=== PATIENT | female | born 1985 | race Caucasian/White ===

== ENCOUNTER 2016-04-28 18:24 | Emergency (ER) | payer MEDICAID ==
[~2016-04-28] VITALS: Ht 149.9 cm; Wt 58.9 kg
[~2016-04-28 18:24] MED LIST: ACET325T33 PO; ALBU8.5H5 IH; AZIT250T94 PO; CLON-379 PO; CYCL100C3 PO; DOCU-144 PO; MECL25TA2 PO; MYCO500T3 PO; POLY17PO6 PO
[2016-04-28 18:48] VITALS: Ht 149.9 cm; Wt 58.9 kg
[2016-04-28] MEDS ORDERED: ONDANSETRON 4 MG INJ IV STA (20:44)
[2016-04-28] MEDS ORDERED: SOD CHLORIDE 0.9% 1,000 ML IV ONE (21:00)
[2016-04-28] MEDS ORDERED: morphine 10 MG INJ IM ONE (21:00)
[2016-04-28 22:20] LABS: ADD SCAN DIFF NO
[2016-04-28 22:25] LABS: BASOPHILS % 0.2 % (0.0-2.0); EOSINOPHILS # 0.1 10^3/ul (0.0-0.5); EOSINOPHILS % 1.2 % (0.0-7.0); HEMATOCRIT 38.4 % (37.0-47.0); HEMOGLOBIN 12.7 g/dl (12.0-16.0); LYMPHOCYTES # 2.3 10^3/ul (0.8-2.9); MEAN CORPUSCULAR HEMOGLOBIN 31.5 pg (29.0-33.0); MEAN CORPUSCULAR HGB CONC 33.1 g/dl (32.0-37.0); MEAN CORPUSCULAR VOLUME 95.3 fl (82.0-101.0); MEAN PLATELET VOLUME 10.8 fl (7.4-10.4); MONOCYTE # 0.8 10^3/ul (0.3-0.9); MONOCYTES % 9.5 % (0.0-11.0); NEUTROPHIL # 4.8 10^3/ul (1.6-7.5); NEUTROPHILS % 59.6 % (39.0-77.0); PLATELET COUNT 321 10^3/UL (140-415); RED BLOOD COUNT 4.03 10^6/ul (4.20-5.40); RED CELL DISTRIBUTION WIDTH 12.7 % (11.5-14.5)
[2016-04-28 22:41] LABS: POTASSIUM 4.3 mmol/L (3.5-5.1)
[2016-04-28 22:43] LABS: ALBUMIN/GLOBULIN RATIO 1.25; BILIRUBIN,INDIRECT 0.3 mg/dl (0-1.1); BILIRUBIN,TOTAL 0.3 mg/dl (0.2-1.3); CREATININE 0.71 mg/dl (0.44-1.00); TOTAL PROTEIN 7.2 g/dl (6.1-8.1)
[2016-04-28 22:44] LABS: CALCIUM 9.3 mg/dl (8.4-10.2)
--- NOTE | 2016-04-28 22:46 | RADRPT ---
PROCEDURE: CT ABDOMEN/PELVIS WITHOUT CONTRAST CLINICAL INDICATION: 30-year-old female with abdominal pain and distension. The patient has a his tory of renal transplant. TECHNIQUE: The study was performed utilizing a GE Tractivepeed VCT 64-slice CT scanner. Direct axia l sections were obtained through the abdomen and pelvis without the use of intravenous contrast mate rial. Sagittal and coronal reformations were obtained. Automated exposure control and iterative nieves nstruction techniques were utilized for this examination. [facility]D/vol = 7.0 mGy; Total Exam DLP = 330.6 mGy-cm. COMPARISON: CT abdomen/pelvis April 05, 2015. FINDINGS: There is minimal left basilar subsegmental atelectasis. There is no evidence for significant pleura l effusion. The liver has a normal size and contour without focal areas of abnormal density. No int rahepatic nor extrahepatic biliary ductal dilatation is seen. The gallbladder demonstrates no wall t hickening nor pericholecystic fluid. No biliary stones are evident. The pancreas is without areas of abnormal attenuation. The spleen is identified and has a normal size without abnormal density. The adrenal glands are unremarkable. The [facility] kidneys are markedly atrophic and not clearly visualize d. There is a transplanted right pelvic kidney with mild prominence of the collecting system but wi thout herb hydronephrosis. Note that this is not significantly different in appearance compared to the patient's prior CT scan from April 2015. The urinary bladder contains urine. There is mild f luid within the proximal small bowel with distal decompression without definite significant transition point. There is mild fluid throughout the colon. The appendix is visualized and measuri ng up to 5 mm but without surrounding inflammatory changes or free fluid. The uterus is unremarkabl e. The aortoiliac vessels are without aneurysmal dilatation. The osseous structures are intact. IMPRESSION: 1. Transplanted right pelvic kidney with mild prominence of the collecting system without significa nt change compared to the patient's prior study from April 05, 2015. 2. Mild fluid-filled proximal small bowel with fluid throughout the colon without definite gross mariam wel obstruction. This may represent an enteritis. Clinical correlation is necessary. .Daquan Gan MD, Date Time Electronically viewed and signed by .Daquan Gan MD, MD on 04/28/2016 22:46 .M/
[2016-04-29] MEDS ORDERED: POLY17PO6 PO (00:55)
[2016-04-29] MEDS ORDERED: LACT10SO5 PO (00:58)
[2016-04-29 02:06] VITALS: BP 143/80; PULSE 78; RESP 20
--- NOTE | 2016-05-31 15:13 | ERD ---
ER Documentation Chief Complaint Date/Time DATE: 05/31/16 TIME: 14:53 Chief Complaint states been constipated x 1 week HPI This pleasant 31-year-old female presents to emergency department today complaining of constipation 5 days, right upper quadrant tenderness, patient reports that she has been nauseated and vomited 3, today. Patient reports pain is 5/10 on pain scale. Patient denies any fever, chills, or dysuria. Denies diarrhea. ROS All systems reviewed and are negative except as per history of present illness. Medications Home Meds Active Scripts Lactulose* (Lactulose*) 10 Gm/15 Ml Solution, 10 GM PO DAILY for 7 Days, ML Prov:LOUISA,MINOO 04/29/16 Polyethylene Glycol* (Miralax*) 17 Gm Powd.pack, 17 GM PO DAILY, #7 Prov:LOUISA,MINOO 04/29/16 Acetaminophen* (Tylenol*) 325 Mg Tablet, 1 TAB PO Q6 Y for PAIN AND OR ELEVATED TEMP, #20 TAB Prov:YANETH ELLIS PA-C 07/25/15 Polyethylene Glycol* (Miralax*) 17 Gm Powd.pack, 17 GM PO DAILY Y for CONSTIPATION, #7 Prov:ELIZABETH PUCKETT PA-C 04/05/15 Docusate Sodium* (Colace*) 100 Mg Capsule, 100 MG PO TID, #30 CAP Prov:ELIZABETH PUCKETT PA-C 04/05/15 Clonidine Hcl* (Clonidine Hcl*) 0.1 Mg Tab, 0.1 MG PO Q4H Y for high blood pressure, #20 TAB Take one (1) tablet PO PRN for systolic BP >180mmHG. Do not take more then 3 tabs daily. Prov:DAVE AYOUB 01/13/15 Meclizine Hcl* (Antivert*) 25 Mg Tablet, 25 MG PO Q6H Y for dizziness, #20 TAB Prov:DAVE AYOUB 01/13/15 Azithromycin* (Zithromax*) 250 Mg Tablet, 250 MG PO DAILY for 4 Days, TAB Prov:DAVE AYOUB 01/13/15 Albuterol Sulfate* (Albuterol Sulfate* HFA) 8.5 Gm Hfa.aer.ad, 2 PUFF IH Q6, #1 EA Prov:DAVE AYOUB 01/13/15 Reported Medications Cyclosporine* (Cyclosporine* Modified) 100 Mg Capsule, 100 MG PO BID, CAP 01/13/15 Mycophenolate Mofetil* (Mycophenolate Mofetil*) 500 Mg Tablet, 500 MG PO BID, TAB 01/13/15 Allergies Allergies: Coded Allergies: No Known Allergies (Verified Allergy, Mild, 04/28/16) PMhx/Soc History of Surgery: Yes (Kidney Transplant 2000) Anesthesia Reaction: No Hx Neurological Disorder: No Hx Respiratory Disorders: No Hx Cardiac Disorders: Yes (HTN) Hx Psychiatric Problems: No Hx Miscellaneous Medical Probl: No Hx Alcohol Use: No Hx Substance Use: No Hx Tobacco Use: No Smoking Status: Never smoker Physical Exam Vitals Vitals stable, nursing notes reviewed Physical Exam Const: No acute distress Head: Atraumatic Eyes: Normal Conjunctiva, EOMI, PERRLA ENT: Normal External Ears, Nose and Mouth. Mucous membranes moist Neck: Full range of motion..~ No meningismus. Resp: Clear to auscultation bilaterally no rales wheezes or rhonchi Cardio: Regular rate and rhythm, no murmurs Abd: Abdomen symmetrical, soft, right upper quadrant tenderness, positive Stahl sign, no McBurney's point tenderness, no CVA tenderness Skin: No petechiae or rashes Back: No midline or flank tenderness Ext: No cyanosis, or edema Neur: Awake and alert Psych: Normal Mood and Affect Results 24 hrs Laboratory Tests Test 04/28/16 21:44 White Blood Count 8.010^3/ul Red Blood Count 4.0310^6/ul Hemoglobin 12.7g/dl Hematocrit 38.4% Mean Corpuscular Volume 95.3fl Mean Corpuscular Hemoglobin 31.5pg Mean Corpuscular Hemoglobin Concent 33.1g/dl Red Cell Distribution Width 12.7% Platelet Count 01014^3/UL Mean Platelet Volume 10.8fl Neutrophils % 59.6% Lymphocytes % 29.0% Monocytes % 9.5% Eosinophils % 1.2% Basophils % 0.2% Nucleated Red Blood Cells % 0.0/100WBC Neutrophils # 4.810^3/ul Lymphocytes # 2.310^3/ul Monocytes # 0.810^3/ul Eosinophils # 0.110^3/ul Basophils # 0.010^3/ul Nucleated Red Blood Cells # 0.010^3/ul Activated Partial Thromboplast Time 27.5Sec Sodium Level 142mmol/L Potassium Level 4.3mmol/L Chloride Level 104mmol/L Carbon Dioxide Level 31mmol/L Anion Gap 11 Blood Urea Nitrogen 10mg/dl Creatinine 0.71mg/dl Glucose Level 87mg/dl Calcium Level 9.3mg/dl Total Bilirubin 0.3mg/dl Direct Bilirubin 0.00mg/dl Indirect Bilirubin 0.3mg/dl Aspartate Amino Transf (AST/SGOT) 25IU/L Alanine Aminotransferase (ALT/SGPT) 36IU/L Alkaline Phosphatase 147IU/L Total Protein 7.2g/dl Albumin 4.0g/dl Globulin 3.20g/dl Albumin/Globulin Ratio 1.25 Lipase 153U/L Current Medications Medications (Trade) Dose Ordered Sig/Joselin Route PRN Reason Start Time Stop Time Status Last Admin Dose Admin Sodium Chloride (NS) 1,000 ml @ 1,000 mls/hr Q1H ONCE IV 04/28/16 21:00 04/28/16 21:59 DC 04/28/16 21:49 Morphine Sulfate (morphine) 2 mg ONCE ONCE IM 04/28/16 21:00 04/28/16 21:01 DC 04/28/16 21:50 Ondansetron HCl (Zofran Inj) 4 mg ONCE STAT IV 04/28/16 20:44 04/28/16 20:55 DC 04/28/16 21:49 Procedures/MDM This pleasant 31-year-old female presenting to emergency department with right upper quadrant pain, nausea and vomiting and constipation, cholelithiasis, cholecystitis, biliary colic, pancreatitis suspected, CAT scan obtain without contrast. Impression transferred right pelvic kidney with mild prominence of the collecting system without significant change, the gallbladder demonstrates no wall thickening or pericholecystic fluid. No biliary stones are evident. The pancreas is without area of abnormal attenuation. The spleen is identified and has normal size without abnormal density, the adrenal glands are unremarkable. Mild free fluid noted in proximal small bowel with fluid throughout the colon without definite gross bowel obstruction. Discussed case with supervising physician. Patient was given 1 L of normal saline, and Zofran , and 2 mg morphine for pain. Post interventions, patient reports improvement with symptoms, patient reports pain is 0 at this time.. Is able to pass p.o. challenge. I feel patient is able to be discharged home, treated outpatient with referral to gastroenterology. I feel the patient is stable for discharge at this time. I have discussed results, examination findings, the treatment plan with the patient and family present prior to discharge bowel hygiene discussed, patient is discharged home with lactulose to take for the next 3 days or until BM. Then MiraLAX daily. Stop for loose stools or diarrhea. Strict indications for emergent reevaluation, side effects of medication were also discussed. All questions were answered. Patient verbalizes understanding and agrees with plan of care. Departure Diagnosis: Primary Impression: Constipation Constipation type: unspecified constipation type Qualified Code: K59.00 - Constipation, unspecified constipation type Condition: Good Patient Instructions: Constipation (Adult) Referrals: [facility] YOU HAVE RECEIVED A MEDICAL SCREENING EXAM AND THE RESULTS INDICATE THAT YOU DO NOT HAVE A CONDITION THAT REQUIRES URGENT TREATMENT IN THE EMERGENCY DEPARTMENT. FURTHER EVALUATION AND TREATMENT OF YOUR CONDITION CAN WAIT UNTIL YOU ARE SEEN IN YOUR DOCTORS OFFICE WITHIN THE NEXT 1-2 DAYS. IT IS YOUR RESPONSIBILITY TO MAKE AN APPOINTMENT FOR FOLOW-UP CARE. IF YOU HAVE A PRIMARY DOCTOR --you should call your primary doctor and schedule an appointment IF YOU DO NOT HAVE A PRIMARY DOCTOR YOU CAN CALL OUR PHYSICIAN REFERRAL HOTLINE AT IF YOU CAN NOT AFFORD TO SEE A PHYSICIAN YOU CAN CHOSE FROM THE FOLLOWING [facility] [address] [facility] [address] [facility] [facility] [address] [facility] [facility] [address] [facility] [facility] [address] [facility]. [facility]. [address] Additional Instructions: Thank you for for coming to [facility] for your care today. Please ask your nurse or provider if you have questions about your care today and do not leave until all your questions have been answered. Please use any medications given as directed and follow-up with your doctor (or the doctor you were referred to) in the next 2-3 days. If you do not have a primary care doctor you may follow up at the [facility] (listed below). You may also use motrin and tylenol as needed for fever and/or pain unless instructed otherwise by your provider or nurse. Indications for more urgent follow-up have been discussed, but you may return to the Emergency Department at ANY time for any worrisome or worsening symptoms. If you have abdominal pain, please know that no test or exam you received is perfect and you should follow up within 8 hours for continued pain. If you had any imaging studies today, such as an X-Ray or CT Scan, these studies will be reviewed later by a radiologist. You will be called if there are important findings that were not identified today, so make sure the contact information you provided at registration is correct. If you received any narcotic pain control medicine today, such as Vicodin, Morphine or Dilaudid, your coordination and judgment may be affected for a number of hours. Please do not drive or operate heavy machinery, and you may want someone to assist you at home. If you were given a prescription for narcotic medication, be aware that it is very addictive- use sparingly and only if necessary. MINOO JASSO May 31, 2016 15:03
== END 2016-04-29 02:08 | disposition home or self-care (01) ==
LOC: E/R 18:24 → FTE 04-29 02:08
DX: K59.00 Constipation, unspecified (principal); I10 Essential (primary) hypertension; R11.2 Nausea with vomiting, unspecified; R10.11 Right upper quadrant pain
CPT/HCPCS: 74176; 80053; 83690; 85025; 85730; 96361; 96372; 96374; J2270; J2405; J7030; Z7502

== ENCOUNTER 2017-02-04 01:02 | Emergency (ER) | payer MEDICAID ==
[~2017-02-04] VITALS: Ht 154.9 cm; Wt 57.2 kg
[~2017-02-04 01:02] MED LIST changes: +CYCL100C21 PO; -CYCL100C3 PO; +LACT10SO5 PO
[2017-02-04 01:09] VITALS: Ht 154.9 cm; Wt 57.2 kg
[2017-02-04] MEDS ORDERED: SOD CHLORIDE 0.9% 1,000 ML IV STA (01:41)
--- NOTE | 2017-02-04 01:44 | ERD ---
ER Documentation Chief Complaint Chief Complaint right abd pain,vomiting HPI 31-year-old woman complains of constipation and no bowel movement 3 days, she is also had a few episodes of clear nonbloody nonbilious emesis. She denies fevers or chills, no dysuria, no chest pain or shortness of breath. She has had kidney transplant surgery many years ago. ROS All systems reviewed and are negative except as per history of present illness. Medications Home Meds Active Scripts Acetaminophen* (Tylophen*) 500 Mg Capsule, 500 MG PO Q6H Y for PAIN, #30 TAB Prov:SUSAN CULLEN MD 02/04/17 Mineral Oil* (Fleet* Mineral Oil Enema) 133 Ml Oil, 133 ML MI DAILY Y for CONSTIPATION, #1 ENEMA Prov:SUSAN CULLEN MD 02/04/17 Docusate Sodium* (Colace*) 100 Mg Capsule, 100 MG PO TID for CONSTIPATION, #30 CAP Prov:SUSAN CULLEN MD 02/04/17 Lactulose* (Lactulose*) 10 Gm/15 Ml Solution, 10 GM PO DAILY for 7 Days, ML Prov:LOUISA,MINOO 04/29/16 Polyethylene Glycol* (Miralax*) 17 Gm Powd.pack, 17 GM PO DAILY, #7 Prov:LOUISA,MINOO 04/29/16 Acetaminophen* (Tylenol*) 325 Mg Tablet, 1 TAB PO Q6 Y for PAIN AND OR ELEVATED TEMP, #20 TAB Prov:YANETH ELLIS PA-C 07/25/15 Polyethylene Glycol* (Miralax*) 17 Gm Powd.pack, 17 GM PO DAILY Y for CONSTIPATION, #7 Prov:ELIZABETH PUCKETT PA-C 04/05/15 Docusate Sodium* (Colace*) 100 Mg Capsule, 100 MG PO TID, #30 CAP Prov:ELIZABETH PUCKETT PA-C 04/05/15 Clonidine Hcl* (Clonidine Hcl*) 0.1 Mg Tab, 0.1 MG PO Q4H Y for high blood pressure, #20 TAB Take one (1) tablet PO PRN for systolic BP >180mmHG. Do not take more then 3 tabs daily. Prov:DAVE AYOUB 11/11/15 Meclizine Hcl* (Antivert*) 25 Mg Tablet, 25 MG PO Q6H Y for dizziness, #20 TAB Prov:DAVE AYOUB 01/13/15 Azithromycin* (Zithromax*) 250 Mg Tablet, 250 MG PO DAILY for 4 Days, TAB Prov:DAVE AYOUB 01/13/15 Albuterol Sulfate* (Albuterol Sulfate* HFA) 8.5 Gm Hfa.aer.ad, 2 PUFF IH Q6, #1 EA Prov:DAVE AYOUB 01/13/15 Reported Medications Cyclosporine* (Cyclosporine* Modified) 100 Mg Capsule, 100 MG PO BID, CAP 01/13/15 Mycophenolate Mofetil* (Mycophenolate Mofetil*) 500 Mg Tablet, 500 MG PO BID, TAB 01/13/15 Allergies Allergies: Coded Allergies: No Known Allergies (Verified Allergy, Mild, 04/28/16) PMhx/Soc Kidney transplant surgery, asthma, hypertension History of Surgery: Yes (Kidney Transplant 2000) Anesthesia Reaction: No Hx Neurological Disorder: No Hx Respiratory Disorders: No Hx Cardiac Disorders: Yes (HTN) Hx Psychiatric Problems: No Hx Miscellaneous Medical Probl: No Hx Alcohol Use: No Hx Substance Use: No Hx Tobacco Use: No FmHx Family History: No diabetes Physical Exam Vitals Vital Signs Date Time Temp Pulse Resp B/P Pulse Ox O2 Delivery O2 Flow Rate FiO2 02/04/17 05:00 98.0 65 14 141/98 98 Room Air 02/04/17 04:00 68 17 146/94 98 Room Air 02/04/17 03:00 67 16 121/63 99 Room Air 02/04/17 02:35 70 02/04/17 02:30 63 18 133/91 99 Room Air 02/04/17 02:00 98.0 79 16 128/77 99 Room Air 02/04/17 01:09 98.4 79 18 140/96 97 Physical Exam GENERAL: Well-developed, well-nourished, well-hydrated, in no apparent distress , looks nontoxic in appearance HEENT: Moist mucous membranes, pink conjunctiva, no cervical spine tenderness or step-off deformities, no goiter, no jaundice or icterus, extraocular movements intact without pain. No submandibular induration, and no pharyngeal erythema NEURO: Alert and oriented 3, cranial nerves II through XII intact bilaterally, pupils equal round reactive to light, no focal deficits or facial asymmetry, sensation intact distally Strength 5/5 in upper and lower extremities bilaterally CARDIAC: Regular rate and rhythm, no murmurs rubs or gallops LUNGS: Clear bilaterally no wheezing crackles or stridor ABDOMEN: Soft nontender, no guarding, no rigidity, no rebound, no psoas sign no obturator sign. Normoactive bowel sounds SKIN: Warm and dry to touch, no abrasions, contusions, or hematomas, no lacerations, no ecchymosis, no target lesions, and without ulcers EXTREMITIES: No clubbing cyanosis or edema, calves are bilaterally symmetrical, no Homans sign, no popliteal cord sign. Distal pulses equal and bilateral PSYCH: Normal affect without agitation or irritability Result Diagram: 02/04/1721402/04/175 Results 24 hrs Laboratory Tests Test 02/04/17 01:30 02/04/17 01:45 02/04/17 02:15 Urine Color YELLOW Urine Clarity CLEAR Urine pH 6.0 Urine Specific [place] 1.014 Urine Ketones NEGATIVEmg/dL Urine Nitrite NEGATIVEmg/dL Urine Bilirubin NEGATIVEmg/dL Urine Urobilinogen NEGATIVEmg/dL Urine Leukocyte Esterase NEGATIVELeu/ul Urine Microscopic RBC 1/HPF Urine Microscopic WBC 1/HPF Urine Squamous Epithelial Cells FEW/HPF Urine Hemoglobin NEGATIVEmg/dL Urine Glucose NEGATIVEmg/dL Urine Total Protein 1+mg/dl Bedside Urine pH (LAB) 6.0 Bedside Urine Protein (LAB) 1+ Bedside Urine Glucose (UA) Negative Bedside Urine Ketones (LAB) Negative Bedside Urine Blood Negative Bedside Urine Nitrite (LAB) Negative Bedside Urine Leukocyte Esterase (L Negative White Blood Count 9.910^3/ul Red Blood Count 4.1410^6/ul Hemoglobin 13.6g/dl Hematocrit 38.5% Mean Corpuscular Volume 93.0fl Mean Corpuscular Hemoglobin 32.9pg Mean Corpuscular Hemoglobin Concent 35.3g/dl Red Cell Distribution Width 12.7% Platelet Count 24617^3/UL Mean Platelet Volume 11.0fl Neutrophils % 69.3% Lymphocytes % 20.5% Monocytes % 9.1% Eosinophils % 0.3% Basophils % 0.4% Nucleated Red Blood Cells % 0.0/100WBC Neutrophils # 6.810^3/ul Lymphocytes # 2.010^3/ul Monocytes # 0.910^3/ul Eosinophils # 0.010^3/ul Basophils # 0.010^3/ul Nucleated Red Blood Cells # 0.010^3/ul Prothrombin Time 12.9Sec Prothrombin Time Ratio 1.0 INR International Normalized Ratio 0.96 Sodium Level 144mmol/L Potassium Level 3.9mmol/L Chloride Level 104mmol/L Carbon Dioxide Level 28mmol/L Anion Gap 16 Blood Urea Nitrogen 12mg/dl Creatinine 0.75mg/dl Glucose Level 91mg/dl Calcium Level 10.0mg/dl Total Bilirubin 0.4mg/dl Direct Bilirubin 0.00mg/dl Indirect Bilirubin 0.4mg/dl Aspartate Amino Transf (AST/SGOT) 22IU/L Alanine Aminotransferase (ALT/SGPT) 34IU/L Alkaline Phosphatase 159IU/L Total Protein 8.1g/dl Albumin 4.2g/dl Globulin 3.90g/dl Albumin/Globulin Ratio 1.07 Lipase 186U/L Current Medications Medications (Trade) Dose Ordered Sig/Joselin Route PRN Reason Start Time Stop Time Status Last Admin Dose Admin Sodium Chloride (NS) 1,000 ml @ 1,000 mls/hr Q1H STAT IV 02/04/17 01:41 02/04/17 02:40 DC 02/04/17 02:30 Ondansetron HCl (Zofran Inj) 4 mg ONCE STAT IV 02/04/17 02:03 02/04/17 02:04 DC 02/04/17 02:30 Morphine Sulfate (morphine) 4 mg ONCE STAT IV 02/04/17 02:52 02/04/17 02:53 DC 02/04/17 03:05 Procedures/[facility] IV line was established patient was placed on monitor technician rhythm strip revealed a sinus rhythm at about 80 bpm with upright P and T waves. Patient was afebrile I administered 1 L normal saline intravenously, morphine 4 mg IV, Zofran 4 mg IV. CBC and electrolytes were normal, liver function tests were normal, urine analysis was negative for infection. CT scan of the abdomen and pelvis revealed constipation. Differential diagnoses considered, included but not limited to acute coronary syndrome, pulmonary embolism, aortic dissection, abdominal aortic aneurysm, sepsis, stroke, meningitis, encephalitis, pneumonia, appendicitis, cholecystitis , bowel obstruction, pyelonephritis, nephrolithiasis, cystitis, as well as metabolic, hematologic, and electrolyte abnormalities. As well as abscess, cellulitis, fractures, and dislocations. Patient feels much better at this time, and vital signs are normal, symptoms have improved. I did give strict instructions to return to the ED if symptoms continue or worsen, patient will otherwise follow-up with primary care physician. Patient understood instructions and agreed to plan. Disclaimer: Inadvertent spelling and grammatical errors are likely due to EHR/ dictation software use and do not reflect on the overall quality of patient care. Also, please note that the electronic time recorded on this note does not necessarily reflect the actual time of the patient encounter. Departure Diagnosis: Primary Impression: Constipation Constipation type: slow transit constipation Qualified Code: K59.01 - Slow transit constipation Condition: Good SUSAN CULLEN MD Feb 04, 2017 01:44
[2017-02-04 01:45] LABS: URINE BLOOD (Dip) POC Negative (NEGATIVE)
[2017-02-04] MEDS ORDERED: ONDANSETRON 4 MG INJ IV STA (02:03)
[2017-02-04] MEDS ORDERED: morphine 4 MG/ML VIAL IV STA (02:52)
[2017-02-04 02:57] LABS: BASOPHILS % 0.4 % (0.0-2.0); EOSINOPHILS % 0.3 % (0.0-7.0); HEMATOCRIT 38.5 % (37.0-47.0); HEMOGLOBIN 13.6 g/dl (12.0-16.0); LYMPHOCYTES % 20.5 % (15.0-51.0); MEAN CORPUSCULAR HEMOGLOBIN 32.9 pg (29.0-33.0); MEAN CORPUSCULAR HGB CONC 35.3 g/dl (32.0-37.0); MONOCYTE # 0.9 10^3/ul (0.3-0.9); MONOCYTES % 9.1 % (0.0-11.0); NEUTROPHIL # 6.8 10^3/ul (1.6-7.5); NEUTROPHILS % 69.3 % (39.0-77.0); PLATELET COUNT 356 10^3/UL (140-415); RED BLOOD COUNT 4.14 10^6/ul (4.20-5.40); RED CELL DISTRIBUTION WIDTH 12.7 % (11.5-14.5); WHITE BLOOD COUNT 9.9 10^3/ul (4.8-10.8)
[2017-02-04 03:19] LABS: ALBUMIN 4.2 g/dl (3.3-4.9); ALBUMIN/GLOBULIN RATIO 1.07; BILIRUBIN,INDIRECT 0.4 mg/dl (0-1.1); BILIRUBIN,TOTAL 0.4 mg/dl (0.2-1.3); CREATININE 0.75 mg/dl (0.44-1.00); POTASSIUM 3.9 mmol/L (3.5-5.1); TOTAL PROTEIN 8.1 g/dl (6.1-8.1)
[2017-02-04 03:21] LABS: INR 0.96; PROTIME 12.9 Sec (11.9-14.9)
[2017-02-04 03:26] LABS: ADD UMIC YES; UR ASCORBIC ACID 40 mg/dL (NEGATIVE); UR BILIRUBIN (Dip) NEGATIVE (NEGATIVE); UR BLOOD (Dip) NEGATIVE (NEGATIVE); UR CLARITY CLEAR (CLEAR); UR COLOR YELLOW (YELLOW); UR GLUCOSE (Dip) NEGATIVE (NEGATIVE); UR KETONES (Dip) NEGATIVE (NEGATIVE); UR LEUKOCYTE ESTERASE (Dip) NEGATIVE Leu/ul (NEGATIVE); UR NITRITE (Dip) NEGATIVE (NEGATIVE); UR RBC 1 /HPF (0-5); UR SPECIFIC GRAVITY (Dip) 1.014 (1.003-1.030); UR SQUAMOUS EPITHELIAL CELL FEW /HPF (FEW); UR TOTAL PROTEIN (Dip) 1+ mg/dl (NEGATIVE); UR UROBILINOGEN (Dip) NEGATIVE (NEGATIVE)
--- NOTE | 2017-02-04 04:31 | RADRPT ---
PROCEDURE: CT abdomen and pelvis without intravenous contrast. CLINICAL INDICATION: Pain. TECHNIQUE: CT of the abdomen/pelvis was performed utilizing axial images with reconstructions in s agittal and coronal planes. The administered radiation dose is CTDI 6.6 mGy, DLP 337 mGy-cm. One or more of the following dose reduction techniques were used: automated exposure control, adjustment of the mA and/or kV according to patient size and/or use of iterative reconstruction technique. DICOM images are available. COMPARISON: 04/28/2016 FINDINGS: Visualized Chest: The visualized lung bases are clear. Abdomen: The liver, spleen, pancreas, gallbladder,and adrenal glands are unremarkable. The makah kidneys are not seen. A right lower quadrant kidney transplant is noted without hydroneph rosis or urinary calculi. There is no evidence of bowel obstruction. The appendix is normal. No intra-abdominal free air is seen. Some increased formed stool is noted in the right colon and transverse colon. There is no evidence of intra-abdominal adenopathy or free fluid. Pelvis: There is no evidence of pelvic adenopathy. The uterus and ovaries are without enlargement. The uri nary bladder is unremarkable. There is no pelvic free fluid. Osseous structures: Unremarkable. IMPRESSION: No acute findings. Increased formed stool in the right colon and transverse colon suggestive of constipation. RPTAT: HIKT .Teja Madsen MD, Date Time Electronically viewed and signed by .Teja Madsen MD, on 02/04/2017 04:31 .T/
[2017-02-04 05:00] VITALS: BP 141/98; PULSE 65; RESP 14; TEMP 98
[2017-02-04] MEDS ORDERED: DOCU-144 PO (05:08)
[2017-02-04] MEDS ORDERED: MINE133E23 PR (05:08)
[2017-02-04] MEDS ORDERED: ACET500C5 PO (05:08)
== END 2017-02-04 05:27 | disposition home or self-care (01) ==
LOC: E/R 01:02
DX: K59.01 Slow transit constipation (principal); I10 Essential (primary) hypertension; J45.909 Unspecified asthma, uncomplicated; R10.9 Unspecified abdominal pain
CPT/HCPCS: 36415; 74176; 80053; 81001; 83690; 85025; 85610; 96374; 96375; J2270; J2405; J7030; Z7502; 81003